=== PATIENT | female | born 1935 | race Caucasian/White ===

== ENCOUNTER → 2019-02-07 13:17 | Outpatient (CLI) | payer MEDICARE, MEDICAID, SELFPAY ==
--- NOTE | 2019-02-07 13:22 | CT_ITS ---
PROCEDURE: CT HIP RT WO CON CLINICAL HISTORY: S/P FALL PERSISTENT RIGHT HIP PAIN FOLLOWING INJURY COMPARISON: No exams were available for comparison TECHNIQUE: Axial images obtained with sagittal and coronal reformats. All CT scans at the facility use one or more dose reduction, viz: automated exposure control, ma/kV adjustment per patient size (including targeted exams where dose is matched to indication, i.e. head), or iterative reconstruction technique. FINDINGS: There is a nondisplaced fracture involving the tip of the greater trochanter best seen on series 601, image 31. No femoral neck fracture evident. No other fractures are apparent. There is mild subcutaneous edema along the lateral aspect of the hip. Minimal osteoarthritic changes are present involving the right hip IMPRESSION: Nondisplaced fracture involves the tip of the greater trochanter. No femoral neck fracture apparent Dictated by: Luis Dailey MD 02/08/2019 07:28 Electronically signed by Luis aDiley MD in [place] 02/08/2019 07:28
== END ==
PROVIDERS: PCP Internal Medicine Adolescent Medicine; Visit Provider Internal Medicine Adolescent Medicine
DX: M25.551 Pain in right hip (principal)
CPT/HCPCS: 73700

== ENCOUNTER → 2019-02-15 09:59 | Outpatient (CLI) | payer MEDICARE, MEDICAID, SELFPAY ==
--- NOTE | 2019-02-15 10:12 | XR_ITS ---
PROCEDURE: XR HIP RT 2-3V W/PELVIS CLINICAL INDICATION: hip FX Follow-up fracture COMPARISON: CT HIP RT WO CON from 02/07/2019 FINDINGS: Previous CT scan demonstrated a nondisplaced fracture involving the upper aspect of the greater tuberosity. There is a vague lucency noted at this region. No other significant anomalies are evident. There are mild osteoarthritic changes of the right hip. There is generalized vascular calcification. IMPRESSION: Subtle nondisplaced fracture at the tip of the greater tuberosity Dictated by: Luis Dailey MD 02/15/2019 10:50 Electronically signed by Luis Dailey MD in [place] 02/15/2019 10:50
== END ==
PROVIDERS: PCP Internal Medicine Adolescent Medicine; Visit Provider Orthopaedic Surgery
DX: S72.001A Fracture of unspecified part of neck of right femur, initial encounter for closed fracture (principal)
CPT/HCPCS: 73502

== ENCOUNTER → 2020-08-12 09:20 | Outpatient (CLI) | payer MEDICARE, MEDICAID, SELFPAY ==
[2020-08-12 14:19] LABS: Chloride 100 mmol/L (98-107); Potassium 4.4 mmoL/L (3.5-5.1); Sodium 138 mmol/L (136-145)
[2020-08-12 14:22] LABS: Albumin Level 2.8 g/dl (3.5-5.0); Albumin/Globulin Ratio 1.3 (1.1-1.8); Alkaline Phosphatase 64 U/L (38-126); Anion Gap 5.4 mEq/L (5-15); Aspartate Amino Transferase 15 U/L (14-36); Bilirubin,Total 0.3 mg/dl (0.2-1.3); Blood Urea Nitrogen 14 mg/dl (7-17); Carbon Dioxide 37 mmol/L (22.0-30.0); Estimated Glomerular Filt Rate 60 ml/min (>60); GFR (African American) 72 ML/MIN (>60); Globulin 2.1 g/dL (1.3-3.2); Glucose 65 mg/dl (74-100); Total Protein,Serum 4.9 g/dl (6.3-8.2)
[2020-08-12 14:23] LABS: Alanine Aminotransferase < 4 U/L (12-78)
[2020-08-12 14:38] LABS: Basophils % 0.5 % (0.1-2.0); Eosinophils # 0.2 K/mm3 (0.0-0.4); Eosinophils % 5.2 % (0.1-12.0); Hematocrit 26.9 % (37.0-47.0); Hemoglobin 8.7 g/dL (12.2-16.2); Lymphocytes # 0.9 K/mm3 (0.7-4.5); Lymphocytes % 21.7 % (10-50); Mean Corpuscular HGB Conc 32.2 g/dL (31.8-35.4); Mean Corpuscular Hemoglobin 30.2 pg (27.0-31.2); Mean Corpuscular Volume 93.7 fl (81-99); Monocytes # 0.4 K/mm3 (0.1-1.0); Monocytes % 9.3 % (1.7-9.3); Neutrophils # 2.7 K/mm3 (1.8-7.8); Neutrophils % 63.2 % (37.0-80.0); Platelet Count 297 K/mm3 (142-424); Red Blood Count 2.87 M/mm3 (4.20-5.40); Red Cell Distribution Width 13.6 % (11.5-17.5); White Blood Count 4.2 K/mm3 (4.8-10.8)
== END ==
PROVIDERS: Visit Provider Nurse Practitioner Family
DX: I10 Essential (primary) hypertension (principal)
CPT/HCPCS: 36415; 80053; 85025

== ENCOUNTER → 2020-09-12 15:04 | Outpatient (CLI) | payer MEDICARE, MEDICAID, SELFPAY ==
[2020-09-12 15:10] LABS: Microscopic, Urine URINE MICROSCOPIC (MICROSCOPIC)
[2020-09-12 15:26] LABS: Appearance,Urine CLEAR (Clear); Bilirubin,Urine Negative (Negative); Blood, Urine Negative (Negative); Color,Urine YELLOW (Yellow); Glucose,Urine (UA) Negative (Negative); Ketones,Urine Negative (Negative); Leukocyte Esterase,Urine Negative (Negative); Nitrate,Urine Negative (Negative); Protein,Urine Negative (Negative); Specific Gravity, Urine 1.025 (1.005-1.030); Urobilinogen,Urine 0.2 EU/dl (0.2)
== END ==
PROVIDERS: Visit Provider Nurse Practitioner Family
DX: R41.0 Disorientation, unspecified (principal)
CPT/HCPCS: 81001

== ENCOUNTER → 2020-09-25 13:50 | Outpatient (CLI) | payer MEDICARE, MEDICAID, SELFPAY ==
[2020-09-25 14:28] LABS: Basophils % 0.5 % (0.1-2.0); Eosinophils # 0.2 K/mm3 (0.0-0.4); Eosinophils % 3.8 % (0.1-12.0); Hematocrit 31.6 % (37.0-47.0); Lymphocytes # 0.7 K/mm3 (0.7-4.5); Lymphocytes % 15.4 % (10-50); Mean Corpuscular HGB Conc 31.6 g/dL (31.8-35.4); Mean Corpuscular Hemoglobin 29.7 pg (27.0-31.2); Mean Platelet Volume 8.6 fl (7.4-10.4); Monocytes # 0.4 K/mm3 (0.1-1.0); Monocytes % 7.3 % (1.7-9.3); Neutrophils # 3.5 K/mm3 (1.8-7.8); Neutrophils % 72.9 % (37.0-80.0); Platelet Count 210 K/mm3 (142-424); Red Blood Count 3.37 M/mm3 (4.20-5.40); Red Cell Distribution Width 13.7 % (11.5-17.5); White Blood Count 4.8 K/mm3 (4.8-10.8)
[2020-09-25 15:13] LABS: Alanine Aminotransferase 8 U/L (12-78); Albumin Level 3.1 g/dl (3.5-5.0); Albumin/Globulin Ratio 1.3 (1.1-1.8); Alkaline Phosphatase 78 U/L (38-126); Anion Gap 6.4 mEq/L (5-15); Aspartate Amino Transferase 20 U/L (14-36); Bilirubin,Total 0.7 mg/dl (0.2-1.3); Blood Urea Nitrogen 16 mg/dl (7-17); Calcium 8.2 mg/dl (8.4-10.2); Carbon Dioxide 38 mmol/L (22.0-30.0); Chloride 96 mmol/L (98-107); Estimated Glomerular Filt Rate 68 ml/min (>60); GFR (African American) 83 ML/MIN (>60); Globulin 2.4 g/dL (1.3-3.2); Glucose 102 mg/dl (74-100); Potassium 4.4 mmoL/L (3.5-5.1); Sodium 136 mmol/L (136-145); Total Protein,Serum 5.5 g/dl (6.3-8.2)
== END ==
PROVIDERS: Nurse Practitioner Family; Visit Provider Internal Medicine Adolescent Medicine
DX: D64.9 Anemia, unspecified (principal)
CPT/HCPCS: 80053; 85025

== ENCOUNTER → 2020-10-04 11:32 | Outpatient (CLI) | payer MEDICARE, MEDICAID, SELFPAY ==
[2020-10-04 11:35] LABS: Microscopic, Urine URINE MICROSCOPIC (MICROSCOPIC)
[2020-10-04 11:47] LABS: Appearance,Urine CLEAR (Clear); Bilirubin,Urine Negative (Negative); Blood, Urine Negative (Negative); Color,Urine YELLOW (Yellow); Glucose,Urine (UA) Negative (Negative); Ketones,Urine 1+ (Negative); Leukocyte Esterase,Urine TRACE (Negative); Nitrate,Urine Negative (Negative); Protein,Urine Negative (Negative); Urobilinogen,Urine 0.2 EU/dl (0.2)
== END ==
PROVIDERS: Visit Provider Nurse Practitioner Family
DX: R30.0 Dysuria (principal)
CPT/HCPCS: 81001

== ENCOUNTER → 2020-10-07 08:02 | Outpatient (CLI) | payer MEDICARE, MEDICAID, SELFPAY ==
[2020-10-07 14:34] LABS: Alanine Aminotransferase 10 U/L (12-78); Albumin Level 3.1 g/dl (3.5-5.0); Albumin/Globulin Ratio 1.3 (1.1-1.8); Alkaline Phosphatase 67 U/L (38-126); Anion Gap 7.2 mEq/L (5-15); Aspartate Amino Transferase 22 U/L (14-36); Bilirubin,Total 0.6 mg/dl (0.2-1.3); Blood Urea Nitrogen 14 mg/dl (7-17); Calcium 8.1 mg/dl (8.4-10.2); Carbon Dioxide 34 mmol/L (22.0-30.0); Chloride 93 mmol/L (98-107); Estimated Glomerular Filt Rate 68 ml/min (>60); GFR (African American) 83 ML/MIN (>60); Globulin 2.3 g/dL (1.3-3.2); Glucose 75 mg/dl (74-100); Potassium 4.2 mmoL/L (3.5-5.1); Sodium 130 mmol/L (136-145); Total Protein,Serum 5.4 g/dl (6.3-8.2)
[2020-10-07 15:01] LABS: Hemoglobin A1C 4.3 % (4.0-6.0)
== END ==
PROVIDERS: Visit Provider Internal Medicine Adolescent Medicine
DX: I10 Essential (primary) hypertension (principal); Z79.899 Other long term (current) drug therapy
CPT/HCPCS: 36415; 80053; 83036

== ENCOUNTER 2020-10-10 07:56 | Inpatient (IN) | payer MEDICARE, MEDICAID, SELFPAY ==
[2020-10-10] VITALS (14 sets, daily range): BP systolic 134–166; BP diastolic 42–75; PULSE 61–86; RESP 16–18; TEMP 36.3–36.6; O2SAT 97–100; BMI 20.1; BMI 20.2; BMI 14.9; BMI 15.0
--- NOTE | 2020-10-10 07:57 | HMH.EDGENADL ---
ED Disposition Clinical Impression: Fracture of femoral neck, left, closed Qualifiers: Encounter type: initial encounter Qualified Code(s): S72.002A - Fracture of unspecified part of neck of left femur, initial encounter for closed fracture Disposition: Admitted as Observation Condition on Discharge: Good Referrals: Tracy Mcconnell [Primary Care Provider] - Time of Disposition: 11:00 - Critical Care Critical Care Time: No Attestation: On , the high probability of a clinically significant, sudden or life threatening deterioration of the following system(s) required my full and direct attention, intervention and personal management. The time I documented below is in addition to time spent performing reported procedures but includes the following listed in this critical care notation. Medical Decision Making - Medical Records Medical records reviewed: Yes: I reviewed the patient's medical records. - Simeon Inquiry Pt receiving controlled substance: No Vital Signs: 10/10/20 07:57 10/10/20 08:01 10/10/20 08:30 Temperature 97.5 F L Temperature Source Oral Pulse Rate 63 61 Pulse Rate [Right Radial] 62 Respiratory Rate 18 16 16 Blood Pressure 135/52 L 154/55 H Blood Pressure [Right Arm] 157/70 H Blood Pressure Mean 79 84 Blood Pressure Mean [Right Arm] 99 Blood Pressure Source [Right Arm] Automatic Cuff Blood Pressure Position [Right Arm] Sitting 02 Sat by Pulse Oximetry 99 100 100 Oxygen Delivery Method Room Air 10/10/20 09:00 10/10/20 09:31 10/10/20 10:01 Temperature Temperature Source Pulse Rate 63 68 64 Pulse Rate [Right Radial] Respiratory Rate 18 Blood Pressure 166/58 H 144/47 H 137/52 L Blood Pressure [Right Arm] Blood Pressure Mean 87 82 80 Blood Pressure Mean [Right Arm] Blood Pressure Source [Right Arm] Blood Pressure Position [Right Arm] 02 Sat by Pulse Oximetry 100 100 99 Oxygen Delivery Method - Lab Data Lab results reviewed: Yes: I reviewed the patient's lab results. Lab Results 10/10/20 09:15: WBC 6.0, RBC 3.31 L, Hgb 10.1 L, Hct 30.0 L, MCV 90.6, MCH 30.5, MCHC 33.7, RDW 14.5, Plt Count 257, MPV 8.3, Neut % (Auto) 78.5, Lymph % (Auto) 13.1, [place] % (Auto) 5.9, Eos % (Auto) 2.0, Baso % (Auto) 0.5, Neut # (Auto) 4.7, Lymph # (Auto) 0.8, [place] # (Auto) 0.4, Eos # (Auto) 0.1, Baso # (Auto) 0.0 10/10/20 09:15: Sodium 132 L, Potassium 4.4, Chloride 94 L, Carbon Dioxide 35 H, Anion Gap 7.4, BUN 14, Creatinine 0.70, Estimated Creat Clear 33, Estimated GFR 80, Est GFR ( Amer) 96, Glucose 94, Calcium 8.2 L Result diagrams: 10/10/20 09:15 10/10/20 09:15 Orders (Tests/Meds): ED MEDICATIONS Discontinued Medications Generic Name Dose Route Start Last Admin Trade Name Freq PRN Reason Stop Dose Admin Morphine Sulfate 2 mg 10/10/20 09:03 10/10/20 09:20 Morphine 2mg/Ml Syringe IV 10/10/20 09:04 2 mg ONCE ONE Administration - Radiology Data #1 Image(s): Pelvis, Hip Image Reviewed: Yes I reviewed the patient's radiology image Preliminary Findings: Abnormal Fracture through surgical neck of left hip per my wet read - CT Data CT Scan: Head Time Received: 08:[address] Reviewed: Yes: I have viewed the radiologist's interpretation Preliminary Findings: Normal/NAD - ECG Data Tracing #1 I reviewed this ECG and interpreted as documented below: Sinus rhythm with first-degree AV block, no ST elevation or depression, normal intervals, no ectopy. ECG initial impression date: 10/10/20 ECG initial impression time: 10:09 Medical Decision Narrative: 84yo F evaluated after a fall. Concern for left hip fracture. Given recurrent falls and ongoing anticoagulant use, sent for CT of the head. I have reviewed the patient's plain films and patient has a hip fracture. Preoperative labs and chest x-ray will also be ordered. Case to be discussed with orthopedics once CT head is complete. Labs are unremarkable. CT of the [place]
--- NOTE | 2020-10-10 07:58 | XR_ITS ---
PROCEDURE: XR PELVIS 1-2V Left hip two views CLINICAL INDICATION: pain, possible d/l Fall with injury and pain COMPARISON: CR XR HIP RT 2-3V W/PELVIS from 02/15/2019 CR XR HIP LT 2-3V W/PELVIS from 10/10/2020 TECHNIQUE: XR Pelvis AP View FINDINGS: There is a comminuted fracture in the transcervical portion of the left femoral neck. There is foreshortening at the fracture site with 2 cm lateral displacement of the distal femur and with foreshortening by approximately 1.3 cm. The femoral head is located. IMPRESSION: Comminuted and left femoral neck fracture in the transcervical region as described above. Dictated by: Luis Dailey MD 10/10/2020 08:52 Luis Dailey MD in [place] 10/10/2020 08:52
--- NOTE | 2020-10-10 08:08 | PC.NURSE ---
pt to xray
--- NOTE | 2020-10-10 08:33 | CT_ITS ---
PROCEDURE: CT HEAD/BRAIN WO CON CLINICAL INDICATION: fall, blood thinner COMPARISON: No exams were available for comparison TECHNIQUE: Axial images obtained. All CT scans at the facility use one or more dose reduction, viz: automated exposure control, ma/kV adjustment per patient size (including targeted exams where dose is matched to indication, i.e. head), or iterative reconstruction technique. FINDINGS: No midline shift, mass effect, intracranial hemorrhage, hydrocephalus, or extra-axial fluid collection is evident. There is generalized atrophy with hypoattenuation of the periventricular white matter consistent with microangiopathic changes. The calvarium has an unremarkable appearance. Small amount fluid is present in the left mastoid sinus. There is minimal mucosal thickening of the ethmoid sinus anteriorly on the left. IMPRESSION: No acute intracranial finding Dictated by: Luis Dailey MD 10/10/2020 08:55 Luis Dailey MD in [place] 10/10/2020 08:55
[2020-10-10 09:31] LABS: Basophils % 0.5 % (0.1-2.0); Eosinophils # 0.1 K/mm3 (0.0-0.4); Hemoglobin 10.1 g/dL (12.2-16.2); Lymphocytes # 0.8 K/mm3 (0.7-4.5); Lymphocytes % 13.1 % (10-50); Mean Corpuscular HGB Conc 33.7 g/dL (31.8-35.4); Mean Corpuscular Hemoglobin 30.5 pg (27.0-31.2); Mean Corpuscular Volume 90.6 fl (81-99); Mean Platelet Volume 8.3 fl (7.4-10.4); Monocytes # 0.4 K/mm3 (0.1-1.0); Monocytes % 5.9 % (1.7-9.3); Neutrophils # 4.7 K/mm3 (1.8-7.8); Neutrophils % 78.5 % (37.0-80.0); Platelet Count 257 K/mm3 (142-424); Red Blood Count 3.31 M/mm3 (4.20-5.40); Red Cell Distribution Width 14.5 % (11.5-17.5)
[2020-10-10 09:34] LABS: Chloride 94 mmol/L (98-107); Sodium 132 mmol/L (136-145)
[2020-10-10 09:35] LABS: Potassium 4.4 mmoL/L (3.5-5.1)
[2020-10-10 09:37] LABS: Blood Urea Nitrogen 14 mg/dl (7-17); Creatinine Clearance Estimated 33 mL/min (50-200); Estimated Glomerular Filt Rate 80 ml/min (>60); GFR (African American) 96 ML/MIN (>60)
[2020-10-10 09:38] LABS: Anion Gap 7.4 mEq/L (5-15); Calcium 8.2 mg/dl (8.4-10.2); Carbon Dioxide 35 mmol/L (22.0-30.0); Glucose 94 mg/dl (74-100)
--- NOTE | 2020-10-10 09:50 | PC.NURSE ---
Dr Chandler paged, he is to call back
--- NOTE | 2020-10-10 10:09 | ECG_ITS ---
APPROVED REPORT Exam: Resting ECG HR:64 bpm ECG Measurements Heart Rate 64 AXES CO 216 P 86 QRSd 80 QRS 50 QT 450 T 64 QTc 464 Conclusion Sinus rhythm with 1st degree AV block Nonspecific ST abnormality Abnormal ECG Electronically signed by : Ed Whittington, 10/11/2020 21:29:31
--- NOTE | 2020-10-10 10:54 | PC.NURSE ---
CHASE HOBBS speaking with Dr. Chandler
--- NOTE | 2020-10-10 11:05 | PC.NURSE ---
Dr Burton spoke with Dr Perez
--- NOTE | 2020-10-10 11:13 | PC.NURSE ---
skin tear to L hand and wrist area and L shoulder cleaned with hibiclens and sterile 4x4s, steri strips applied and telfa and tegaderm dressing.
[2020-10-10 11:29] LABS: Coronavirus 19, PCR Not Detected (NotDetected); Influenza A, PCR Not Detected (NotDetected); Influenza B, PCR Not Detected (NotDetected)
--- NOTE | 2020-10-10 11:57 | PC.NURSE ---
BED ASSIGNMENT GIVEN, ROOM 212. ALL NOTIFIED
--- NOTE | 2020-10-10 12:21 | PC.NURSE ---
report called to cathie grimes on second floor.
--- NOTE | 2020-10-10 12:23 | PC.NURSE ---
REPORT RECEIVED FROM DASHA WILCOX, RN
--- NOTE | 2020-10-10 13:11 | HMH.PHAVTE ---
[facility] Pharmacy VTE Monitoring - Patient Demographics Admission date: 10/10/20 Report Date: 10/10/20 Time: 13:11 Allergies/Adverse Reactions: Patient Allergies No Known Allergies Allergy (Verified 02/15/19 11:39) Height: 1.57 m Weight: 49.895 kg Patient Problems: Current Active Problems Fracture of femoral neck, left, closed (Acute) - VTE Risk Labs: VTE Related Lab Results Hgb 10.1 g/dL (12.2-16.2) L 10/10/20 09:15 Hct 30.0 % (37.0-47.0) L 10/10/20 09:15 Plt Count 257 K/mm3 (142-424) 10/10/20 09:15 BUN 14 mg/dl (7-17) 10/10/20 09:15 Creatinine 0.70 mg/dl (0.52-1.04) 10/10/20 09:15 Estimated Creat Clear 33 mL/min (50-200) 10/10/20 09:15 - Prophylaxis VTE Prophylaxis Ordered?: Yes Types of VTE Prophylaxis: IPCS Thigh High, Pharmacological Location of Applied Device: Bilateral Lower Extremeties Pharmacologic Type: Enoxaparin
--- NOTE | 2020-10-10 14:02 | HMH.ORTHOCON ---
*Admission Date: 10/10/20 *Reason for consult:: Patchy neck of femur, left hip *History of present illness: Ms. Little is an 84-year-old female resident at [facility] was admitted to hospital from the ER earlier today for management of left hip fracture. Patient has severe dementia and is difficult to communicate with. Her daughter is with her at the bedside in the room. Patient reportedly had a fall at the senior care today and was brought to the ER via EMS due to concern for left hip pain. Evaluation in the ER confirmed a displaced subcapital femoral neck fracture of the left hip. 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 Prior to the fall patient had limited mobility and mostly wheelchair-bound. No other injuries or pain reported. [facility] History I have reviewed the patient's past medical history: Yes Medical History: Reports:: Atrial Fibrillation, Dementia, Hypertension *Have you ever received a pneumonia vaccine?: No *Have you received a flu vaccine this season?: No Other Surgeries: Yes: Tubal Ligation - *Social History Smoking Status: Never smoker Alcohol Intake: never *Occupational Status:: retired *Travel in the last 8 weeks: None Family Hx:: Non-contributory Review of Systems - Review of Systems Review of systems:: unable to obtain Meds Home Medications Medication Instructions Recorded Confirmed Type acetaminophen 500 mg tablet 500 mg PO Q4H PRN 02/27/19 10/10/20 History albuterol sulfate 2.5 mg INHALATION Q4HP PRN 02/27/19 10/10/20 History ferrous sulfate 325 mg (65 mg 325 mg PO DAILY 02/27/19 10/10/20 History iron) tablet isosorbide mononitrate 30 mg 30 mg PO DAILY 02/27/19 10/10/20 History tablet,extended release 24 hr lorazepam 0.5 mg tablet 0.5 mg PO TID 02/27/19 10/10/20 History polyethylene glycol 3350 17 17 g PO DAILY PRN 02/27/19 10/10/20 History gram/dose oral powder rivaroxaban 20 mg tablet 20 mg PO DAILY 02/27/19 10/10/20 History Albuterol Sulfate [Albuterol 2 puffs IH Q4HP PRN 10/10/20 10/10/20 History Sulfate Hfa] Carboxymethylcellulose Sodium 1 drp OP Q12HP PRN 10/10/20 10/10/20 History [Refresh Tears] Famotidine [Pepcid 20mg Tablet] 20 mg PO HS 10/10/20 10/10/20 History Fluticasone/Umeclidin/Vilanter 1 inh PO DAILY 10/10/20 10/10/20 History [Trelegy Ellipta 100-62.5-25] Guaifenesin/Dextromethorphan 10 ml PO Q6HP PRN 10/10/20 10/10/20 History [Guaifenesin-Dm 100-10 mg/5 ml] Mirtazapine 7.5 mg PO HS 10/10/20 10/10/20 History Ondansetron [Zofran 4mg ODT] 4 mg PO DAILY 10/10/20 10/10/20 History Sennosides [Senna] 8.6 mg PO HS 10/10/20 10/10/20 History Allergies Allergy/AdvReac Type Severity Reaction Status Date / Time No Known Allergies Allergy Verified 02/15/19 11:39 Exam Vital signs and Labs for Last 24 Hours: Temp Pulse Resp BP Pulse Ox 97.8 F 69 18 154/52 H 100 10/10/20 13:16 10/10/20 13:16 10/10/20 13:16 10/10/20 13:16 10/10/20 13:16 Laboratory Results - last 24 hr 10/10/20 09:15: WBC 6.0, RBC 3.31 L, Hgb 10.1 L, Hct 30.0 L, MCV 90.6, MCH 30.5, MCHC 33.7, RDW 14.5, Plt Count 257, MPV 8.3, Neut % (Auto) 78.5, Lymph % (Auto) 13.1, [place] % (Auto) 5.9, Eos % (Auto) 2.0, Baso % (Auto) 0.5, Neut # (Auto) 4.7, Lymph # (Auto) 0.8, [place] # (Auto) 0.4, Eos # (Auto) 0.1, Baso # (Auto) 0.0 10/10/20 09:15: Sodium 132 L, Potassium 4.4, Chloride 94 L, Carbon Dioxide 35 H, Anion Gap 7.4, BUN 14, Creatinine 0.70, Estimated Creat Clear 33, Estimated GFR 80, Est GFR ( Amer) 96, Glucose 94, Calcium 8.2 L 10/10/20 11:24: SARS-CoV-2 (PCR) Not detected, Influenza A Untype (PCR) Not detected, Influenza Type B (PCR) Not detected I & O for Last 24 hours: Intake & Output 10/08/20 10/09/20 10/10/20 10/11/20 11:59 11:59 11:59 11:59 Weight 109 lb 15.994 oz 81 lb 9 oz - Constitutional mild distress, chronically ill appearing - *Routine HEENT Exam Head: Present: at
--- NOTE | 2020-10-10 15:48 | PC.NURSE ---
Pt arrived to the floor via stretcher accompanied by PANDA Jackson. She is alert to self and birthday. Telfa and tegaderm removed from hand to assess but wound was cleansed and covered w/steri strips in the ER. Steri strips to both hand and wrist. Clean telfa and tegaderm placed back over the steri strips. Bloody drainage on streri strips. Pt has scattered bruising to body. Family at bedside and supportive. Will continue to monitor.
--- NOTE | 2020-10-10 18:00 | PC.NURSE ---
Placed mccarthy for prolonged immobilization related to fractured hip. Unable to get urine sample as urine return was minimal due to patient urinating immediately before placing mccarthy.
--- NOTE | 2020-10-10 18:21 | HMH.HP ---
*Admission Date: 10/10/20 *Chief complaint: fall, hip pain *History of present illness: Ms. Little is an 84-year-old female resident at [facility] where she reportedly had a fall earlier today. Was brought to the ER via EMS due to concern for left hip pain. 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 On presentation to the ER she was sent for CT of her head along with hip imaging. No acute intracranial abnormality (CT shows significant atrophy). X-ray of left hip shows comminuted and left femoral neck fracture in the transcervical region. Patient was admitted to medicine for further management discussion about possible surgical intervention. On assessment after arriving to the floor, patient is prior self with no family at bedside. Daughter had been present earlier in the afternoon. Patient is pleasant but demented. Significantly debilitated and chronically ill-appearing. Cachectic on initial assessment. Oxygen saturations adequate on 2 L nasal cannula (chronically on 2 to 3 L). Focalizes to pain in her left hip. No other significant complaints on exam. [facility] History I have reviewed the patient's past medical history: Yes Medical History: Reports:: Atherosclerotic Heart Disease, Atrial Fibrillation, Dementia, Hypertension Denies:: Cancer, Diabetes Mellitus Type 1, Diabetes Mellitus Type 2, MRSA *Have you ever received a pneumonia vaccine?: Yes *Have you received a flu vaccine this season?: Yes Other Medical History: Reports: Anemia (b12 deficiency), Arthritis Other Surgeries: Yes: Tubal Ligation - *Social History Smoking Status: Never smoker Alcohol Intake: never *Occupational Status:: retired Housing: [facility] *Travel in the last 8 weeks: None Family Hx:: Unable to obtain Review of Systems - Review of Systems Review of systems:: pertinent systems reviewed and negative unless documented below (14 point review of systems performed, pertinent positives and negatives as per HPI) Meds Home Medications Medication Instructions Recorded Confirmed Type acetaminophen 500 mg tablet 500 mg PO Q4H PRN 02/27/19 10/10/20 History albuterol sulfate 2.5 mg INHALATION Q4HP PRN 02/27/19 10/10/20 History ferrous sulfate 325 mg (65 mg 325 mg PO DAILY 02/27/19 10/10/20 History iron) tablet isosorbide mononitrate 30 mg 30 mg PO DAILY 02/27/19 10/10/20 History tablet,extended release 24 hr lorazepam 0.5 mg tablet 0.5 mg PO TID 02/27/19 10/10/20 History polyethylene glycol 3350 17 17 g PO DAILY PRN 02/27/19 10/10/20 History gram/dose oral powder rivaroxaban 20 mg tablet 20 mg PO DAILY 02/27/19 10/10/20 History Albuterol Sulfate [Albuterol 2 puffs IH Q4HP PRN 10/10/20 10/10/20 History Sulfate Hfa] Carboxymethylcellulose Sodium 1 drp OP Q12HP PRN 10/10/20 10/10/20 History [Refresh Tears] Famotidine [Pepcid 20mg Tablet] 20 mg PO HS 10/10/20 10/10/20 History Fluticasone/Umeclidin/Vilanter 1 inh PO DAILY 10/10/20 10/10/20 History [Trelegy Ellipta 100-62.5-25] Guaifenesin/Dextromethorphan 10 ml PO Q6HP PRN 10/10/20 10/10/20 History [Guaifenesin-Dm 100-10 mg/5 ml] Mirtazapine 7.5 mg PO HS 10/10/20 10/10/20 History Ondansetron [Zofran 4mg ODT] 4 mg PO DAILY 10/10/20 10/10/20 History Sennosides [Senna] 8.6 mg PO HS 10/10/20 10/10/20 History Allergies Allergy/AdvReac Type Severity Reaction Status Date / Time No Known Allergies Allergy Verified 02/15/19 11:39 Exam Vital signs and Labs for Last 24 Hours: Temp Pulse Resp BP Pulse Ox 97.3 F L 77 16 158/65 H 99 10/10/20 15:54 10/10/20 15:54 10/10/20 15:54 10/10/20 15:54 10/10/20 15:54 Laboratory Results - last 24 hr 10/10/20 09:15: WBC 6.0, RBC 3.31 L, Hgb 10.1 L, Hct 30.0 L, MCV 90.6, MCH 30.5, MCHC 33.7, RDW 14.5, Plt Count 257, MPV 8.3, Neut % (Auto) 78.5, Lymph % (Auto) 13.1, [place] % (Auto) 5.9, Eos % (Auto) 2.0, Baso % (Auto) 0.5, Neut
--- NOTE | 2020-10-10 19:21 | XR_ITS ---
PROCEDURE INFORMATION: Exam: XR Chest Exam date and time: 10/10/2020 7:21 PM Age: 84 years old Clinical indication: Screening exam; Pre-operative exam; Other: Unknown TECHNIQUE: Imaging protocol: XR of the chest. Portable AP exam 8:43 p.m. Views: 1 view. COMPARISON: No relevant prior studies available. FINDINGS: Tubes, catheters and devices: Overlying oxygen tubing. Lungs: Pulmonary hyperinflation. Emphysematous changes. Coarsened interstitial markings scattered through the lung periphery, and likely small calcified granulomas in both lungs. Mild airspace opacities in the lower lateral right and left lungs which are probably chronic scarring and atelectasis, but could be a small focus of pneumonia; no prior exams available to compare. Pleural spaces: No pleural effusion. No pneumothorax. Heart/Mediastinum: Heart size appears within upper limits of normal. Vasculature: Calcified plaque in the aortic arch. Bones/joints: Bones appear mildly demineralized, spinal degenerative changes. IMPRESSION: 1. Findings suggest COPD, with pulmonary hyperinflation, patchy emphysematous changes, interstitial scarring and granulomatous changes. 2. Mild airspace opacities in the lower lateral right and left lungs which are probably areas of scarring and atelectasis, but these could be small foci of pneumonia. No prior exams available to compare.
[2020-10-11] VITALS (7 sets, daily range): BP systolic 102–158; BP diastolic 49–89; PULSE 66–83; RESP 16–18; TEMP 36.7–37.2; O2SAT 92–100; BMI 15.0
--- NOTE | 2020-10-11 01:53 | PC.NURSE ---
Patient very anxious and confused from start of shift with multiple outburst calling for family members that are not here; Patient moved to room closed to nursing [facility] for closer monitoring. Family member aware. Patient pulled catheter out approximately at 2100 with no urine in bag to be collected for order. Brief applied. Patient given morphine for pain and Ativan as scheduled and has been resting with eyes closed.
[2020-10-11 07:05] LABS: Basophils % 0.4 % (0.1-2.0); Eosinophils # 0.1 K/mm3 (0.0-0.4); Eosinophils % 1.1 % (0.1-12.0); Hematocrit 31.3 % (37.0-47.0); Hemoglobin 10.5 g/dL (12.2-16.2); Lymphocytes # 0.6 K/mm3 (0.7-4.5); Lymphocytes % 7.3 % (10-50); Mean Corpuscular HGB Conc 33.6 g/dL (31.8-35.4); Mean Corpuscular Hemoglobin 30.7 pg (27.0-31.2); Mean Corpuscular Volume 91.3 fl (81-99); Mean Platelet Volume 8.7 fl (7.4-10.4); Monocytes # 0.6 K/mm3 (0.1-1.0); Monocytes % 7.6 % (1.7-9.3); Neutrophils # 6.7 K/mm3 (1.8-7.8); Neutrophils % 83.6 % (37.0-80.0); Platelet Count 245 K/mm3 (142-424); Red Blood Count 3.42 M/mm3 (4.20-5.40); Red Cell Distribution Width 14.3 % (11.5-17.5)
[2020-10-11 07:06] LABS: Chloride 93 mmol/L (98-107); Potassium 4.6 mmoL/L (3.5-5.1); Sodium 132 mmol/L (136-145)
[2020-10-11 07:09] LABS: Anion Gap 8.6 mEq/L (5-15); Blood Urea Nitrogen 13 mg/dl (7-17); Calcium 8.2 mg/dl (8.4-10.2); Carbon Dioxide 35 mmol/L (22.0-30.0); Creatinine Clearance Estimated 24 mL/min (50-200); Estimated Glomerular Filt Rate 80 ml/min (>60); GFR (African American) 96 ML/MIN (>60); Glucose 99 mg/dl (74-100)
--- NOTE | 2020-10-11 08:30 | HMH.ACPN2 ---
Internal Medicine - PN: Subj *Date: 10/11/20 *Time: 08:30 Interval history: Patient was confused overnight, screaming out in pain intermittently. Responded well to current pain regimen however with calming and appearing comfortable. Somewhat more delirious. Stable oxygen overnight. Hemodynamic stable. Labs reviewed this morning and stable. Unable to give review of systems this morning. Exam Vital signs and Labs for Last 24 Hours: Temp Pulse Resp BP Pulse Ox 98.1 F 83 16 132/89 100 10/11/20 07:39 10/11/20 07:39 10/11/20 07:39 10/11/20 07:39 10/11/20 07:39 Laboratory Results - last 24 hr 10/10/20 09:15: WBC 6.0, RBC 3.31 L, Hgb 10.1 L, Hct 30.0 L, MCV 90.6, MCH 30.5, MCHC 33.7, RDW 14.5, Plt Count 257, MPV 8.3, Neut % (Auto) 78.5, Lymph % (Auto) 13.1, [place] % (Auto) 5.9, Eos % (Auto) 2.0, Baso % (Auto) 0.5, Neut # (Auto) 4.7, Lymph # (Auto) 0.8, [place] # (Auto) 0.4, Eos # (Auto) 0.1, Baso # (Auto) 0.0 10/10/20 09:15: Sodium 132 L, Potassium 4.4, Chloride 94 L, Carbon Dioxide 35 H, Anion Gap 7.4, BUN 14, Creatinine 0.70, Estimated Creat Clear 33, Estimated GFR 80, Est GFR ( Amer) 96, Glucose 94, Calcium 8.2 L 10/10/20 11:24: SARS-CoV-2 (PCR) Not detected, Influenza A Untype (PCR) Not detected, Influenza Type B (PCR) Not detected 10/11/20 06:38: WBC 8.0 D, RBC 3.42 L, Hgb 10.5 L, Hct 31.3 L, MCV 91.3, MCH 30.7, MCHC 33.6, RDW 14.3, Plt Count 245, MPV 8.7, Neut % (Auto) 83.6 H, Lymph % (Auto) 7.3 L, [place] % (Auto) 7.6, Eos % (Auto) 1.1, Baso % (Auto) 0.4, Neut # (Auto) 6.7, Lymph # (Auto) 0.6 L, [place] # (Auto) 0.6, Eos # (Auto) 0.1, Baso # (Auto) 0.0 10/11/20 06:38: Sodium 132 L, Potassium 4.6, Chloride 93 L, Carbon Dioxide 35 H, Anion Gap 8.6, BUN 13, Creatinine 0.70, Estimated Creat Clear 24, Estimated GFR 80, Est GFR ( Amer) 96, Glucose 99, Calcium 8.2 L I & O for Last 24 hours: Intake & Output 10/08/20 10/09/20 10/10/20 10/11/20 23:59 23:59 23:59 23:59 Intake Total 180 / 180 0 / 0 Balance 180 / 180 0 / 0 Weight 37 kg 37 kg Narrative: - Constitutional moderate distress, cachectic, supra-clavicular retraction/sunken in appearance, chronically ill appearing - *Routine HEENT Exam Head: Present: atraumatic Eye: Present: EOMI, PERRL ENT: Present: mucous membranes moist Comments: bitemporal wasting - *Routine Neck Exam Present: supple. Absent: lymphadenopathy - *Routine Respiratory Exam Present: prolonged expiratory phase, wheezes, diminished air movement. Absent: rhonchi, crackles Comments: Minimal end expiratory - *Routine Cardiovascular Exam Present: RRR - *Routine Abdominal Exam Present: soft, normoactive bowel sounds. Absent: tenderness - *Routine Extremities Exam Absent: cyanosis, clubbing, edema Comments: Thin legs, sarcopenia, left leg externally rotated and shorter than right; tender to palpation overlying left hip - *Routine Skin Exam Present: warm, ecchymosis. Absent: rash - *Routine Neurological Exam Present: alert, responds to verbal stimuli with garbled response. Focalizes to pain Assessment and Plan (1) Fracture of femoral neck, left, closed Status: Acute Qualifiers: Encounter type: initial encounter Qualified Code(s): S72.002A - Fracture of unspecified part of neck of left femur, initial encounter for closed fracture Category: Medical Code(s): S72.002A - Fracture of unspecified part of neck of left femur, initial encounter for closed fracture (2) Cachexia Status: Chronic Category: Medical Code(s): R64 - Cachexia (3) End stage COPD Status: Chronic Category: Medical Code(s): J44.9 - Chronic obstructive pulmonary disease, unspecified (4) Vascular dementia Status: Chronic Category: Medical Code(s): F01.50 - Vascular dementia without behavioral disturbance (5) History of deep vein thrombosis of lower extremity Status: Chronic Category: Medical Code(s): Z86.718 - Personal history of other venous thrombosis and
--- NOTE | 2020-10-11 16:43 | PC.NURSE ---
Pt has been pleasantly confused this shift. Alert to person. Pt has had several complaints of pain and has been medicated with Morphine + Oxycodone per JUN. Pt is receiving O2 via NC @ 2 LPM with sats. >90%. Lung sounds are diminished. No edema noted. LT hand skin tear covered with Telfa and Tegaderm. Pt is incontinent and a brief is in place. Urine is clear and yellow. No BM thus far today. Appetite is poor and pt only eats a few bites of every meal. Pt has been turned/repositioned and received oral care Q2H this shift. Ice pack in place to the LT HIP. VSS. Call light within reach. Bed safety alarm is set. Will continue to monitor.
--- NOTE | 2020-10-11 23:15 | PC.NURSE ---
RA SATS WERE 88% RETURNED PT TO 2L NC
[2020-10-12] VITALS: BP 110/74; PULSE 68; RESP 16; TEMP 36.6; O2SAT 97
--- NOTE | 2020-10-12 03:36 | PC.NURSE ---
shift summary pt is alert but confused. lung sounds are diminished with sats maintained 95% or above on 2L via NC. pt has continued to eat very little only having half a cup of ice cream. pt voids per brief urine is clear and yellow in color. pt has been turned every 2 hours to prevent skin breakdown. pts pain has been been controlled with scheduled meds. pt denies nausea, vomiting, or diarrhea. no acute changes will continue to monitor.
[2020-10-12 04:00] VITALS: BP 112/71; PULSE 70; RESP 16; TEMP 37.1; O2SAT 96
[2020-10-12 05:00] VITALS: BMI 15.0
[2020-10-12 07:38] VITALS: BP 130/51; PULSE 109; RESP 20; TEMP 36.8; O2SAT 91
[2020-10-12 08:00] VITALS: PULSE 109; RESP 20; O2SAT 91
--- NOTE | 2020-10-12 09:18 | [facility].DCSUM ---
General - General Admission date:: 10/10/20 Discharge date: 10/12/20 HPI HPI: Ms. Little is an 84-year-old female resident at [facility] where she reportedly had a fall earlier today. Was brought to the ER via EMS due to concern for left hip pain. 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 On presentation to the ER she was sent for CT of her head along with hip imaging. No acute intracranial abnormality (CT shows significant atrophy). X-ray of left hip shows comminuted and left femoral neck fracture in the transcervical region. Patient was admitted to medicine for further management discussion about possible surgical intervention. On assessment after arriving to the floor, patient is prior self with no family at bedside. Daughter had been present earlier in the afternoon. Patient is pleasant but demented. Significantly debilitated and chronically ill-appearing. Cachectic on initial assessment. Oxygen saturations adequate on 2 L nasal cannula (chronically on 2 to 3 L). Focalizes to pain in her left hip. No other significant complaints on exam. Hospital Course Hospital Course: 84-year-old female with significant debility, cachexia, dementia, end-stage COPD admitted for left hip fracture. Extensive discussion with family about goals of care and operative versus nonoperative management. See progress notes for details of discussions. Family opted to pursue nonoperative management with pain treatment and transferring care to hospice with goal of comfort. She has been managed on oral and IV pain medication through her stay. Assessed by hospice at [facility], will need [id number] with hospice doctor however given previous admission and discharge from hospice last year. Given her current state however, no concern for her ultimate admission. Plan to discharge back to her f[facility] ([facility]) with plan for hospice to take over care after she gets there. Continue feeding for comfort/pleasure. Oral Roxanol sent to [facility] medical pharmacy. 5 mg every 3 hours as needed for pain control. Caution with transfers as left hip is source of her pain. Patient's diagnosis is terminal. Examined on day of discharge. Objective Vital signs: Temp Pulse Resp BP Pulse Ox 98.2 F 109 H 20 130/51 L 91 L 10/12/20 07:38 10/12/20 07:38 10/12/20 07:38 10/12/20 07:38 10/12/20 07:38 Narrative: - Constitutional Resting on exam, awoke to verbal and physical stimulimoderate distress, cachectic, supra-clavicular retraction/sunken in appearance, chronically ill appearing - *Routine HEENT Exam Head: Present: atraumatic Eye: Present: EOMI, PERRL ENT: Present: mucous membranes moist Comments: bitemporal wasting - *Routine Neck Exam Present: supple. Absent: lymphadenopathy - *Routine Respiratory Exam Present: prolonged expiratory phase, wheezes, diminished air movement. Absent: rhonchi, crackles Comments: Minimal end expiratory - *Routine Cardiovascular Exam Present: RRR - *Routine Abdominal Exam Present: soft, normoactive bowel sounds. Absent: tenderness - *Routine Extremities Exam Absent: cyanosis, clubbing, edema Comments: Thin legs, sarcopenia, left leg externally rotated and shorter than right; tender to palpation overlying left hip - *Routine Skin Exam Present: warm, ecchymosis. Absent: rash - *Routine Neurological Exam Present: alert, responds to verbal stimuli with garbled response. Focalizes to pain DS: Diagnosis - Discharge Diagnosis (1) Fracture of femoral neck, left, closed Status: Acute (2) Cachexia Status: Chronic (3) Chronic anticoagulation Status: Chronic (4) End stage COPD Status: Chronic (5) History of deep vein thrombosis of lower extremity Status: Chronic (6) Vascular dementia Status: Chronic Discharge Plan - Patient Discharge Instr
--- NOTE | 2020-10-13 07:19 | SW/DCPLANNER ---
PATIENT DISCHARGED BACK TO [facility] OVER THE WEEKEND WITH HOSPICE TO FOLLOW....
== END 2020-10-12 13:10 | disposition hospice, inpatient (51) | DRG 536 ==
LOC: ER 11:11 → 2ND 12:01
PROVIDERS: Admitting Provider Internal Medicine Adolescent Medicine; Emergency Provider Family Medicine; PCP Physician Assistant; Visit Provider Internal Medicine Adolescent Medicine
DX: S72.032A Displaced midcervical fracture of left femur, initial encounter for closed fracture (principal); R64 Cachexia; Z68.1 Body mass index [BMI] 19.9 or less, adult; J96.11 Chronic respiratory failure with hypoxia; Z91.81 History of falling; Y92.129 Unspecified place in nursing home as the place of occurrence of the external cause; W01.0XXA Fall on same level from slipping, tripping and stumbling without subsequent striking against object, initial encounter; I25.10 Atherosclerotic heart disease of native coronary artery without angina pectoris; I48.91 Unspecified atrial fibrillation; Z79.01 Long term (current) use of anticoagulants; Z86.718 Personal history of other venous thrombosis and embolism; I10 Essential (primary) hypertension; R29.6 Repeated falls; J44.9 Chronic obstructive pulmonary disease, unspecified; Z99.3 Dependence on wheelchair; F01.50 Vascular dementia, unspecified severity, without behavioral disturbance, psychotic disturbance, mood disturbance, and anxiety
CPT/HCPCS: 36415; 70450; 71045; 72170; 73502; 80048; 80053; 83036; 85025; 93005; 94640; 94760; 94761; 96374; 99284; U0003